=== PATIENT | male | born 1955 | race African-American/Black ===

== ENCOUNTER 2017-08-05 11:35 | Inpatient (IN) | payer OTHER, MEDICAID ==
[~2017-08-05] VITALS: Ht 172.7 cm; Wt 148.3 kg
[2017-08-05 11:48] VITALS: BP 123/66
--- NOTE | 2017-08-05 11:48 | NUR ---
PATIENT PRESENTS TO ED WITH C/O CHEST PAIN . PT STATES HE HAS BEEN HAVING CHEST PAIN FOR 2 DAYS . PT DESCRIBES PAIN STABBING, RADIATING TO HIS LEFT UPPER EXTREMITIES. DENIES N/V/D; SKIN IS PINK/WARM/DRY; AAOX4 WITH EVEN AND STEADY GAIT; LUNGS CLEAR BL; HR EVEN AND REGULAR; PT DENIES ANY FEVER, SOB, OR COUGH AT THIS TIME; PATIENT STATES PAIN OF 10/10 AT THIS TIME; VSS; PATIENT POSITIONED FOR COMFORT; HOB ELEVATED; BEDRAILS UP X2; BED DOWN. ER MD MADE AWARE OF PT STATUS.
[2017-08-05] MEDS ORDERED: ONDANSETRON 4 MG/2 ML VIAL IVP ONE (12:05)
[2017-08-05] MEDS ORDERED: NITROGLYCERIN 0.4 MG TAB SL ONE (12:05)
[2017-08-05] MEDS ORDERED: MORPHINE SULFATE 4 MG/ML SYR IVP ONE (12:05)
[2017-08-05] MEDS ORDERED: ASPIRIN 81 MG TAB.CHEW PO ONE (12:05)
[2017-08-05 12:15] LABS: BASOPHILS # (AUTO) 0.3 K/uL (0.00-0.22); BASOPHILS % (AUTO) 3.8 % (0.0-2.0); EOSINOPHILS # (AUTO) 0.1 K/uL (0-0.4); EOSINOPHILS % (AUTO) 1.6 % (0.0-4.0); HEMOGLOBIN 13.4 g/dL (12.0-18.0); LYMPHOCYTES # (AUTO) 2.2 K/uL (2.0-11.5); LYMPHOCYTES % (AUTO) 26.7 % (20.5-51.1); MEAN CORPUSCULAR HEMOGLOBIN 28 pg (27-31); MEAN CORPUSCULAR HGB CONC 32 g/dL (33-37); MEAN CORPUSCULAR VOLUME 88 fL (80-94); MONOCYTES # (AUTO) 0.6 K/uL (0.8-1.0); MONOCYTES % (AUTO) 7.4 % (1.7-9.3); NEUTROPHILS # (AUTO) 5.1 K/uL (1.8-7.7); NEUTROPHILS % (AUTO) 60.5 % (42.2-75.2); PLATELET COUNT (AUTO) 207 K/uL (140-450); RED BLOOD CELL COUNT(AUTO) 4.75 MIL/uL (4.20-6.10); RED CELL DISTRIBUTION WIDTH 13.4 % (11.6-13.7); WHITE BLOOD COUNT (AUTO) 8.3 K/uL (4.8-10.8)
[2017-08-05 12:30] LABS: PROTHROMBIN TIME 10.4 secs (10.8-13.4)
[2017-08-05 12:33] LABS: ANION GAP 14.1 (8-16); CARBON DIOXIDE 24.8 mmol/L (21-32); CREATININE 1.1 mg/dL (0.7-1.3); POTASSIUM 3.9 mmol/L (3.5-5.1)
[2017-08-05 12:39] LABS: ALBUMIN 3.1 g/dL (3.4-5.0); TOTAL BILIRUBIN 0.3 mg/dL (0.0-1.0)
[2017-08-05] MEDS ORDERED: ACETAMINOPHEN 325 MG TAB PO PRN (14:45)
[2017-08-05] MEDS ORDERED: ONDANSETRON 4 MG/2 ML VIAL IVP PRN (14:45)
[2017-08-05] MEDS ORDERED: HYDROcodone/APAP 7.5/325 MG 1 TAB PO PRN (14:45)
[2017-08-05] MEDS ORDERED: NITROGLYCERIN 0.4 MG TAB SL PRN (14:55)
--- NOTE | 2017-08-05 15:15 | NUR ---
Patient will be admitted to care of DR GALEANA . Admited to [facility]. Will go to room 111B. Belongings list completed. Report to JOSÉ MANUEL MCALLISTER .
[2017-08-05 15:29] LABS: CHOL/HDL RATIO 3.7 (1-4.5); FREE T4 (FREE THYROXINE) 0.9 ng/dL (0.76-1.46); PHOSPHORUS 2.3 mg/dL (2.5-4.9); THYROID STIMULATING HORMONE 0.86 uIU/mL (0.34-3.74)
[2017-08-05 15:30] VITALS: BP 109/70
--- NOTE | 2017-08-05 15:30 | NUR ---
PATIENT ARRIVED ON UNIT VIA ER BED/GURNEY. ABLE TO AMBULATE FROM ER BED/GURNEY TO [facility], [place] BED/GURNEY WITH STEADY GAIT. PATIENT IN STABLE CONDITION. RESPIRATIONS EVEN, UNLABORED, ON ROOM AIR. AAOX4, CALM, COOPERATIVE, SKIN COLOR APPROPRIATE TO ETHNICITY, WARM TO TOUCH. COMPLAINTS OF 8/10 SHARP WITH PRESSURE CHEST PAIN RADIATING TO LEFT ARM. PATIENT TOOK 1 NITROGLYCERIN SUBLINGUAL BEFORE COMING TO ER, AND ER GAVE NITROGLYCERIN SUBLINGUAL X2, AND MORPHINE. PATIENT REPORTS THAT HELPED THE CHEST PAIN A LITTLE BIT. WILL NOTIFY THE ATTENDING MD. LUNGS CTA ON ALL LOBES. ABDOMEN SOFT, OBESE. SKIN IS INTACT THROUGHOUT BODY. IV SITE IS INTACT, PATENT, AND STARTED INFUSING IVF PER ORDERS. ORIENTED PATIENT TO ROOM. REVIEWED PLAN OF CARE WITH PATIENT. SAFETY MEASURES IN PLACE, CALL LIGHT WITHIN REACH. WILL CONTINUE TO MONITOR.
[2017-08-05] MEDS: NACL 0.9% 1,000 ML IV SCH (16:33)
--- NOTE | 2017-08-05 16:47 | NUR ---
DR. FONTENOT AT BEDSIDE PERFORMING ASSESSMENT AND REVIEWING PLAN OF CARE WITH PATIENT. WILL CONTINUE TO MONITOR.
--- NOTE | 2017-08-05 19:30 | NUR ---
GAVE REPORT TO TALENT PARTNER NURSE FOR CONTINUITY OF CARE. PATIENT IN STABLE CONDITION.
--- NOTE | 2017-08-05 19:56 | NUR ---
PATIENT IS RESTING IN BED AWAKE ALERT ORIENTED VITALS SIGNS TAKEN B/P 78/42 HR58 I RECHECKED IT AGAIN ITS 88/50 HR 58 PATIENT COMPLAINS OF PAIN TO CHEST AND LT ARM. PATIENT HAS COMPLAINS OF SLIGHT SOB.I CHECKED PATIENT'S TROPONIN LEVEL AND I CALLED RESIDENT AND INFORMED MD PARISI OF PATIENT'S CURRENT STATUS OF NOW, AND ALSO I QUESTIONED THE TIMING FOR THE TROPONIN PATIENT HAD ONE TODAY AND THE NEXT ONE IS SCHEDULED FOR TOMORROW AND PATIENT WAS DIAGNOSED WITH CHEST PAIN.MD PARISI SAID HE WILL TAKE A LOOK AT THE PATIENT AND SAID ITS OK TO PLACE OXYGEN ON THE PATIENT AT 2L FOR NOW.WILL CONTINUE TO MONITOR.
[2017-08-05 20:00] VITALS: BP 88/50
--- NOTE | 2017-08-05 20:05 | NUR ---
I GAVE THE PATIENT SOME NITRO SL 0.4 FOR HIS CHEST PAIN 04/10 WILL MONITOR THE PATIENT.
--- NOTE | 2017-08-05 20:10 | NUR ---
PATIENT REFUSED THE SECOND NITRO SL PATIENT STATES,"IT GIVES ME HEADACHES." PATIENT STATES,"I WANT SOMETHING FOR MY PAIN PATIENT STATES HIS CHEST PAIN WENT FROM A 04/10 TO 03/11 BUT PATIENT STATES,"I NEED SOME PAIN MEDICATION THAT IS NOT NORCO BECAUSE IT DOES NOTHING FOR MY PAIN. I CALLED MD PARISI AND INFORMED HIM HE SAID HE WILL COME TO SEE THE PATIENT.
--- NOTE | 2017-08-05 20:12 | NUR ---
MD PARISI CAME AND SAW THE PATIENT.
--- NOTE | 2017-08-05 20:15 | NUR ---
PATIENT WAS GIVEN SOME NOURISHMENT.
[2017-08-05] MEDS ORDERED: MORPHINE SULFATE 2 MG/ML SYR IVP SCH (20:20)
[2017-08-05] MEDS: DOCUSATE SODIUM 100 MG GELCAP PO SCH (20:23)
--- NOTE | 2017-08-05 20:23 | NUR ---
PATIENT REFUSED TO TAKE HIS STOOL SOFTENER PATIENT STATES I HAVE A BOWEL MOVEMENT YESTERDAY AND TODAY.I DON'T NEED ONE.
--- NOTE | 2017-08-05 20:23 | NUR ---
BLOOD PRESSURE MEDS WERE HELD LAST B/P WAS LOW AND RECORDED.
--- NOTE | 2017-08-05 20:30 | NUR ---
Patient's Plan of Care was discussed and reviewed with PASTORA: CLARENCE
[2017-08-05 21:00] VITALS: BP 112/80
[2017-08-05] MEDS ORDERED: ATORVASTATIN 20 MG TAB PO SCH (21:00)
[2017-08-05] MEDS ORDERED: METOPROLOL 25 MG TAB PO SCH (21:00)
--- NOTE | 2017-08-05 21:00 | NUR ---
LABS DRAWN BY JONO. PATIENT SMILING TALKING AND WATCHING TV. WHEN ASKED IF HIS STILL IN PAIN PATIENT STATES,"YES, I MAYBE SMILING BUT I'M STILL HAVING CHEST PAIN 03/11." I TOLD THE PATIENT THAT JOSÉ MANUEL SPRAGUE WILL ADMINISTER THE MORPHINE IT HAS BEEN VERIFIED BY THE PHARMACY ALREADY. PATIENT VERBALIZES UNDERSTANDING.
[2017-08-05] MEDS ORDERED: DIAZ5TAB7 PO (21:19)
[2017-08-05] MEDS ORDERED: PANT40EC PO (21:19)
[2017-08-05] MEDS ORDERED: AMLO10TA PO (21:19)
[2017-08-05] MEDS ORDERED: CYCL10TA13 PO (21:19)
[2017-08-05] MEDS ORDERED: ALPR0.5T2 PO (21:19)
[2017-08-05] MEDS ORDERED: OXYC5TAB4 PO (21:19)
[2017-08-05] MEDS ORDERED: BUPR150T7 PO (21:19)
[2017-08-05] MEDS ORDERED: ISOS30TE35 PO (21:19)
[2017-08-05] MEDS ORDERED: CLOP75TA55 PO (21:19)
[2017-08-05] MEDS ORDERED: DILT-135 PO (21:19)
[2017-08-05] MEDS ORDERED: ESCI20TA PO (21:19)
[2017-08-05] MEDS ORDERED: DULO30EC PO (21:19)
[2017-08-05] MEDS ORDERED: GABA400C PO (21:19)
[2017-08-05] MEDS ORDERED: ATOR20TA PO (21:19)
[2017-08-05] MEDS ORDERED: ASPI81CT89 PO (21:19)
[2017-08-05] MEDS ORDERED: METO25TE2 PO (21:19)
[2017-08-05] MEDS ORDERED: oxyCODONE 5 MG TAB PO SCH (21:25)
[2017-08-05] MEDS ORDERED: DIAZEPAM 5 MG TAB PO SCH (21:25)
[2017-08-05] MEDS ORDERED: ALPRAZolam 0.5 MG TAB PO SCH (21:25)
[2017-08-06] VITALS: BP 101/59
--- NOTE | 2017-08-06 00:17 | NUR ---
PATIENT CURRENTLY SLEEPING WELL VITAL SIGNS TAKEN. PATIENT HAS NO COMPLAINS OF CHEST PAIN AT THIS TIME.PATIENT REMINDED THAT WE NEED A UA SPEC WHEN HE VOIDS.PATIENT VERBALIZES UNDERSTANDING.SCD'S ON TO BOTH LOWER EXTREMITIES. CALL LIGHT WITHIN REACH.WILL CONTINUE TO MONITOR.
--- NOTE | 2017-08-06 03:09 | NUR ---
PATIENT SLEEPING NO DISTRESS INFORMED THAT PATIENT HASN'T VOIDED SINCE THE BEGINNING OF THE SHIFT AND ALSO I HAVEN'T BEEN ABLE TO COLLECT THE UDS. SAID ITS OK.NO NEW ORDER.
[2017-08-06 04:02] VITALS: BP 109/59
--- NOTE | 2017-08-06 04:13 | NUR ---
PATIENT VOIDED URINE COLLECTED FOR UA AND UDS WILL BE SEND TO THE LAB.
[2017-08-06] MEDS ORDERED: KETOROLAC 15 MG/ML VIAL IVP PRN (04:40)
[2017-08-06] MEDS ORDERED: MORPHINE SULFATE 2 MG/ML SYR IVP SCH (04:40)
[2017-08-06 06:20] LABS: BARBITURATE, URINE NEG. ng/ml (NEG <=200); BENZODIAZEPINE, URINE POS. ng/mL (NEG <=200); CANNABINOID, URINE NEG. ng/mL (NEG <=50); COCAINE, URINE NEG. ng/mL (NEG <=300); OPIATE, URINE POS. ng/mL (NEG <=2000); PHENCYCLIDINE SCREEN,URINE NEG. ng/mL (NEG <=25)
[2017-08-06 06:26] LABS: APPEARANCE,URINE CLEAR (CLEAR); BILIRUBIN,URINE NEGATIVE (NEGATIVE); BLOOD, URINE NEGATIVE (NEGATIVE); COLOR,URINE YELLOW (YELLOW); LEUKOCYTE ESTERASE ,URINE NEGATIVE (NEGATIVE); NITRITE, URINE NEGATIVE (NEGATIVE); PH,URINE 5.5 (5.0-9.0); UGLUCOSE NEGATIVE (NEGATIVE)
--- NOTE | 2017-08-06 06:26 | NUR ---
PATIENT IS CURRENTLY RESTING IN BED SLEEPING IVF INFUSING WELL IV SITE PATENT. WILL CONTINUE TO MONITOR.CALL LIGHT WITHIN REACH.
[2017-08-06 06:42] LABS: BASOPHILS # (AUTO) 0.2 K/uL (0.00-0.22); BASOPHILS % (AUTO) 2.3 % (0.0-2.0); EOSINOPHILS # (AUTO) 0.2 K/uL (0-0.4); EOSINOPHILS % (AUTO) 2.3 % (0.0-4.0); HEMATOCRIT 38.7 % (36-52); HEMOGLOBIN 12.5 g/dL (12.0-18.0); LYMPHOCYTES # (AUTO) 2.3 K/uL (2.0-11.5); LYMPHOCYTES % (AUTO) 29.5 % (20.5-51.1); MEAN CORPUSCULAR HEMOGLOBIN 29 pg (27-31); MEAN CORPUSCULAR HGB CONC 32 g/dL (33-37); MEAN CORPUSCULAR VOLUME 90 fL (80-94); MONOCYTES # (AUTO) 0.7 K/uL (0.8-1.0); NEUTROPHILS # (AUTO) 4.5 K/uL (1.8-7.7); NEUTROPHILS % (AUTO) 56.9 % (42.2-75.2); PLATELET COUNT (AUTO) 174 K/uL (140-450); RED BLOOD CELL COUNT(AUTO) 4.32 MIL/uL (4.20-6.10); RED CELL DISTRIBUTION WIDTH 13.6 % (11.6-13.7); WHITE BLOOD COUNT (AUTO) 7.9 K/uL (4.8-10.8)
[2017-08-06 07:07] LABS: HYALINE CASTS, URINE 0-10 /LPF (None Seen); RBC,URINE 0-5 (RARE) /HPF (0-5); WBC,URINE 0-5 (RARE) /HPF (0-5)
--- NOTE | 2017-08-06 07:23 | NUR ---
PATIENT STABLE REPORT ENDORSED TO RN LUKE AT BEDSIDE.
--- NOTE | 2017-08-06 07:24 | NUR ---
RECEIVED REPORT FROM HYDRO PNEUMATIC TESTER NURSE. PATIENT IS AAOX4, RESPIRATORY EFFORT EVEN AND UNLABORED. NO SIGNS AND SYMPTOMS OF ACUTE DISTRESS NOTED AT THIS TIME. PATIENT COMPLAINING OF CHEST PAIN, OFFERED NITROSTAT BUT HE REFUSED, SAYS IT GIVES HIM A BAD HEADACHE. PREFERS IV PAIN MED. HAS IV TO RIGHT FOREARM 22G, INFUSING NORMAL SALINE AT 50ML/HR. SITE IS CLEAN, DRY, PATENT AND INTACT. DISCUSSED PLAN OF CARE WITH PATIENT AND HE VERBALIZED UNDERSTANDING. BED IN LOWEST POSITION, SIDERAILS UP X2, CALL LIGHT PLACED WITHIN REACH. WILL CONTINUE TO MONITOR.
[2017-08-06 07:40] LABS: ANION GAP 10.6 (8-16); CARBON DIOXIDE 28.8 mmol/L (21-32); CREATININE 1.4 mg/dL (0.7-1.3); POTASSIUM 4.4 mmol/L (3.5-5.1)
[2017-08-06 07:44] LABS: MAGNESIUM 2.1 mg/dL (1.8-2.4); PHOSPHORUS 3.9 mg/dL (2.5-4.9)
[2017-08-06 08:00] VITALS: BP 113/65
[2017-08-06] MEDS ORDERED: HYDROcodone/APAP 10/325 MG 1 TAB TAB PO PRN (08:15)
[2017-08-06] MEDS: CLOPIDOGREL 75 MG TAB PO SCH (08:54)
[2017-08-06] MEDS: ASPIRIN 81 MG TAB.CHEW PO SCH (08:54)
[2017-08-06] MEDS: PANTOPRAZOLE 40 MG TABEC PO SCH ×2 (08:55→21:08)
[2017-08-06] MEDS: ATORVASTATIN 20 MG TAB PO SCH (08:55)
[2017-08-06] MEDS: ISOSORBIDE MONONITRATE 30 MG TABER PO SCH (08:55)
[2017-08-06] MEDS: GABAPENTIN 100 MG CAP PO SCH ×2 (08:56→21:07)
[2017-08-06] MEDS: METOPROLOL SUCCINATE 50 MG TABER PO SCH (09:00)
[2017-08-06] MEDS: LISINOPRIL 5 MG TAB PO SCH (09:00)
[2017-08-06] MEDS: DOCUSATE SODIUM 100 MG GELCAP PO SCH ×2 (09:00→21:06)
[2017-08-06] MEDS ORDERED: BUPROPION HCL PO SCH (09:00)
[2017-08-06] MEDS: amLODIPine 5 MG TAB PO SCH (09:00)
[2017-08-06] MEDS ORDERED: ASPIRIN 81 MG TAB.CHEW PO SCH (09:00)
[2017-08-06] MEDS ORDERED: DULoxetine 30 MG CAPDR PO SCH (09:00)
[2017-08-06] MEDS: MORPHINE SULFATE 2 MG/ML SYR IVP PRN ×4 (09:03→21:08)
--- NOTE | 2017-08-06 09:06 | NUR ---
PATIENT HAS BEEN SCREENED AND CATEGORIZED HIGH NUTRITION RISK. PATIENT WILL BE SEEN WITHIN 1-2 DAYS OF ADMISSION. 08/05/18-08/06/[address]
[2017-08-06] MEDS ORDERED: ALPRAZolam 0.5 MG TAB PO PRN (09:45)
[2017-08-06] MEDS: NACL 0.9% 1,000 ML IV SCH (10:45)
[2017-08-06 12:00] VITALS: BP 135/65
--- NOTE | 2017-08-06 12:25 | NUR ---
PER TALIB SCOW DERRICK OPERATOR, REF.NUMBER [id number] RECEIVED A CALL FROM YVETTE FROM [facility]. THEY ARE TOTAL RISK. FAX REVIEW TO [phone] PHONE [phone]. FAXED INITIAL REVIEW.
[2017-08-06 16:00] VITALS: BP 120/60
--- NOTE | 2017-08-06 16:22 | NUR ---
08/06/2017 RD INITIAL ASSESSMENT COMPLETED PLEASE REFER TO NUTRITION ASSESSMENT UNDER CARE ACTIVITY FOR ESTIMATED NUTRITIONAL NEEDS. CONTINUE CARDIAC DIET TOLERATED RD TO PROVIDE NUTRITION EDUCATION AND ENCOURAGE HEART-HEALTHY DIET CHOICES (COMPLETED) RD TO FOLLOW-UP IN 2-3 DAYS PATIENT IS HIGH RISK. KARISSA OAKES, RD
[2017-08-06] MEDS ORDERED: CYCLOBENZAPRINE 10 MG TAB PO SCH (17:00)
[2017-08-06] MEDS ORDERED: DILTIAZEM 120 MG CAPER PO SCH (17:00)
--- NOTE | 2017-08-06 19:19 | NUR ---
ENDORSED PATIENT TO ROLLED HAM LACER RN FOR CONTINUITY OF CARE. PATIENT IN STABLE CONDITION.
--- NOTE | 2017-08-06 19:20 | NUR ---
RECEIVED PT FROM EDISON RN PT IS AAOX4 RT SIDE WEAKNESS IV ON RT ARM INFUSING WELL ON TELMETRY SR PT COME BACK TO SLEEP , DENIES ANY PAIN AT THIS TIME INITIAL ASSESSMENT DONE
[2017-08-06 20:00] VITALS: BP 133/68
--- NOTE | 2017-08-06 21:40 | NUR ---
AFTER PAIN MEDIC GIVEN PT SLEEP QUIET NOT DISTRESS NOTED
[2017-08-07] VITALS: BP 114/66
--- NOTE | 2017-08-07 01:28 | NUR ---
PT VOIDING WELL NOT DISTRESS NOTED ON TELEMETRY SR NOT PAIN NOTED
[2017-08-07] MEDS: NACL 0.9% 1,000 ML IV SCH ×2 (01:50→09:17)
[2017-08-07] MEDS: MORPHINE SULFATE 2 MG/ML SYR IVP PRN (01:54)
[2017-08-07 04:00] VITALS: BP 108/43
--- NOTE | 2017-08-07 04:00 | NUR ---
PT SB ON TELMETRY DENIES ANY PAIN OR DISCOMFORT REPOSITIONED
--- NOTE | 2017-08-07 06:10 | NUR ---
PT REMAIN STABLE DENIES ANY PAIN , ;ON TELEMETRY SB HR 52
[2017-08-07 07:08] LABS: BASOPHILS # (AUTO) 0.2 K/uL (0.00-0.22); BASOPHILS % (AUTO) 2.1 % (0.0-2.0); EOSINOPHILS # (AUTO) 0.2 K/uL (0-0.4); EOSINOPHILS % (AUTO) 2.1 % (0.0-4.0); HEMATOCRIT 38.8 % (36-52); HEMOGLOBIN 12.7 g/dL (12.0-18.0); LYMPHOCYTES # (AUTO) 2.3 K/uL (2.0-11.5); LYMPHOCYTES % (AUTO) 25.1 % (20.5-51.1); MEAN CORPUSCULAR HEMOGLOBIN 29 pg (27-31); MEAN CORPUSCULAR HGB CONC 33 g/dL (33-37); MEAN CORPUSCULAR VOLUME 88 fL (80-94); MONOCYTES # (AUTO) 0.7 K/uL (0.8-1.0); MONOCYTES % (AUTO) 7.9 % (1.7-9.3); NEUTROPHILS # (AUTO) 5.6 K/uL (1.8-7.7); NEUTROPHILS % (AUTO) 62.8 % (42.2-75.2); PLATELET COUNT (AUTO) 162 K/uL (140-450); RED BLOOD CELL COUNT(AUTO) 4.39 MIL/uL (4.20-6.10); RED CELL DISTRIBUTION WIDTH 13.3 % (11.6-13.7)
--- NOTE | 2017-08-07 07:20 | NUR ---
RECEIVED REPORT FROM LIMB DRIVER NURSE. PATIENT LYING DOWN IN BED COMFORTABLY, NO DISTRESS NOTED. DENIES ANY PAIN AT THIS TIME. RESPIRATIONS EVEN, UNLABORED, ON ROOM AIR. AAOX4, CALM, COOPERATIVE, SKIN COLOR APPROPRIATE TO ETHNICITY, WARM TO TOUCH. LUNGS CTA ON ALL LOBES. ABDOMEN SOFT, OBESE. SKIN IS INTACT THROUGHOUT BODY. IV SITE IS INTACT, PATENT, AND STARTED INFUSING IVF PER ORDERS. REVIEWED PLAN OF CARE WITH PATIENT. PATIENT VERBALIZED UNDERSTANDING. SAFETY MEASURES IN PLACE, CALL LIGHT WITHIN REACH. WILL CONTINUE TO MONITOR.
[2017-08-07 07:23] LABS: ANION GAP 12.8 (8-16); CARBON DIOXIDE 24.2 mmol/L (21-32)
[2017-08-07 07:24] LABS: MAGNESIUM 2.1 mg/dL (1.8-2.4); PHOSPHORUS 3.2 mg/dL (2.5-4.9)
[2017-08-07 08:00] VITALS: BP 150/82
[2017-08-07] MEDS ORDERED: NORC10 PO (08:55)
[2017-08-07] MEDS ORDERED: DOCU-299 PO (08:55)
[2017-08-07] MEDS ORDERED: GABA-638 PO (08:55)
[2017-08-07] MEDS ORDERED: LISI-424 PO (08:57)
[2017-08-07] MEDS ORDERED: GABAPENTIN 300 MG CAP PO SCH (09:00)
[2017-08-07] MEDS ORDERED: ESCITALOPRAM 20 MG TAB PO SCH (09:00)
[2017-08-07] MEDS: METOPROLOL SUCCINATE 50 MG TABER PO SCH (09:00)
[2017-08-07] MEDS: ATORVASTATIN 20 MG TAB PO SCH (09:08)
[2017-08-07] MEDS: PANTOPRAZOLE 40 MG TABEC PO SCH (09:08)
[2017-08-07] MEDS: ISOSORBIDE MONONITRATE 30 MG TABER PO SCH (09:09)
[2017-08-07] MEDS: CLOPIDOGREL 75 MG TAB PO SCH (09:09)
[2017-08-07] MEDS: amLODIPine 5 MG TAB PO SCH (09:09)
[2017-08-07] MEDS: LISINOPRIL 5 MG TAB PO SCH (09:09)
[2017-08-07] MEDS: DOCUSATE SODIUM 100 MG GELCAP PO SCH (09:10)
[2017-08-07] MEDS: ASPIRIN 81 MG TAB.CHEW PO SCH (09:10)
--- NOTE | 2017-08-07 09:13 | NUR ---
PATIENT LYING IN BED SLEEPING, AROUSABLE BY VOICE. NO DISTRESS NOTED. DENIES ANY PAIN AT THIS TIME. SCHEDULED MEDICATIONS DUE GIVEN. SAFETY MEASURES IN PLACE, CALL LIGHT WITHIN REACH. WILL CONTINUE TO MONITOR.
--- NOTE | 2017-08-07 10:15 | NUR ---
PATIENT SITTING IN BED WATCHING TV. NO DISTRESS NOTED. DENIES ANY PAIN AT THIS TIME. PATIENT MADE AWARE THAT HE WILL BE DISCHARGED HOME TODAY. PATIENT VERBALIZED UNDERSTANDING AND REPORTED THAT HE WILL DRIVE HIMSELF HOME. DISCHARGE INSTRUCTIONS/EDUCATION GIVEN TO PATIENT IN PREFERRED LANGUAGE OF [place]. FOLLOW-UP INSTRUCTIONS WITH MD AND OUTPATIENT SPANISH LITERATURE PROFESSOR EDUCATION PROVIDED, NEW/CHANGED MEDICATION REGIMEN, AND CARDIAC DIET REGIMEN PROVIDED. ANSWERED ALL OF PATIENT'S QUESTIONS REGARDING DISCHARGE. PATIENT VERBALIZED COMPLETE UNDERSTANDING. ID BANDS REMOVED. IV SITE REMOVED WITH MINIMAL BLOOD AND LUMEN COMPLETELY INTACT. PATIENT TO GET DRESSED THEN DISCHARGE TO HOME. WILL CONTINUE TO MONITOR.
--- NOTE | 2017-08-07 10:40 | NUR ---
PATIENT ALL DRESSED UP AND READY TO GO HOME. ESCORTED PATIENT DOWN TO ER PARKING VIA WHEELCHAIR PER PATIENT REQUESTED. PATIENT ABLE TO AMBULATE FROM WHEELCHAIR TO OWN CAR. PATIENT DISCHARGED AT THIS TIME VIA HOME IN PRIVATE VEHICLE IN STABLE CONDITION.
--- NOTE | 2017-08-07 11:05 | NUR ---
FAXED CONCURRENT REVIEW TO [facility], INCLUDING DISCHARGE SUMMARY AND MUSIC NOTE TO [phone]. SPOKE WITH YVETTE, AND INFORMED HER OF THE DISCHARGE. ALSO FAXED PSYCH CONSULT. SPOKE WITH ADITYA FROM [facility] AND INFORMED HER OF THE DISCHARGE. FAXED REVIEW TO HER INCLUDING THE DISCHARGE SUMMARY. FAX [phone] PHONE [phone].
== END 2017-08-07 10:40 | disposition home or self-care (01) | DRG 205 ==
LOC: MED 11:35 → MTU 14:54
PROVIDERS: ADMIT Family Medicine; ATTEND Family Medicine
DX: M94.0 Chondrocostal junction syndrome [Tietze] (principal); N17.0 Acute kidney failure with tubular necrosis; E43 Unspecified severe protein-calorie malnutrition; E87.0 Hyperosmolality and hypernatremia; I42.9 Cardiomyopathy, unspecified; I11.0 Hypertensive heart disease with heart failure; I50.42 Chronic combined systolic (congestive) and diastolic (congestive) heart failure; E83.39 Other disorders of phosphorus metabolism; Z68.42 Body mass index [BMI] 45.0-49.9, adult; E78.5 Hyperlipidemia, unspecified; I25.10 Atherosclerotic heart disease of native coronary artery without angina pectoris; R73.03 Prediabetes; J44.9 Chronic obstructive pulmonary disease, unspecified; F41.9 Anxiety disorder, unspecified; E66.9 Obesity, unspecified; F41.0 Panic disorder [episodic paroxysmal anxiety]; E78.00 Pure hypercholesterolemia, unspecified; F32.9 Major depressive disorder, single episode, unspecified; I25.2 Old myocardial infarction; Z86.73 Personal history of transient ischemic attack (TIA), and cerebral infarction without residual deficits; Z87.891 Personal history of nicotine dependence; Z71.3 Dietary counseling and surveillance; Z90.49 Acquired absence of other specified parts of digestive tract
CPT/HCPCS: 36415; 71045; 80048; 80053; 80305; 81001; 82150; 83036; 83690; 83735; 83880; 84100; 84439; 84443; 84484; 85025; 85610; 85730; 87081; 93005; 93925; 93970; 96374; 96375; 99285; J2270; J2405; J7030; Q0092